=== PATIENT | female | born 1985 | race Caucasian/White ===

== ENCOUNTER 2017-03-11 22:19 | Emergency (ER) | payer OTHER ==
--- NOTE | 2017-03-11 22:23 | PDOC ---
History of Present Illness - General Chief Complaint: ,Possible Stated Complaint: /SPOTTING Time Seen by Provider: 03/11/17 22:21 - History of Present Illness Initial Comments: 03/11/17 22:44 This otherwise healthy 32-year-old woman , LMP 01/11/17, presents with history of progressive lower abdominal cramping pain and vaginal spotting. Patient has recently moved from [place] to this area and does not yet have an casualty claim adjuster here. When she was still in [place] 2 weeks ago, she had evaluation ultrasound that reportedly showed approximate 6 weeks gestation. A few days ago , her [place] casualty claim adjuster called the patient to tell her that her hormonal levels indicated that she was "further along" than 6 weeks. Also, prescription for antibiotic(patient does know identity of antibiotic) was transmitted to a local pharmacy by her [place] casualty claim adjuster for apparent UTI. Patient has 1 8-year-old child; no difficulty with that or delivery. No other pregnancies noted. Patient has no past medical history except for appendectomy. On no medications and has no known ALLERGIES. Past History - Past Medical History Allergies/Adverse Reactions: Allergies Allergy/AdvReac Type Severity Reaction Status Date / Time No Known Allergies Allergy Unverified 03/11/17 22:24 Home Medications: Ambulatory Orders NK [No Known Home Medication] 03/11/17 Review of Systems - Review of Systems Able to Perform ROS?: Yes Comments:: 12 point review of systems is negative except for what is noted in the history of present illness *Physical Exam - Physical Exam Comments: GENERAL: Adult female, alert and oriented 3, in no acute distress HEAD: Normal with no signs of trauma. EYES: PERRLA, EOMI, sclera anicteric, conjunctiva clear. ENT: Ears normal, nares patent, oropharynx clear without exudates. Dry mucous membranes. NECK: Normal range of motion, supple without lymphadenopathy, JVD, or masses. LUNGS: Breath sounds equal, clear to auscultation bilaterally. No wheezes, and no crackles. HEART:Regular rate and rhythm, normal S1 and S2 without murmur, rub or gallop. ABDOMEN:.normal bowel sounds No guarding or rebound.No masses No distention. Mild suprapubic tenderness EXTREMITIES: Normal range of motion, no edema. No clubbing or cyanosis. No erythema, or tenderness. NEUROLOGICAL: Cranial nerves II through XII grossly intact. Normal speech. No focal neurological deficits. MUSCULOSKELETAL: Back non-tender to palpation, no CVA tenderness SKIN: Warm, Dry, normal turgor, no rashes or lesions noted. Progress Note - Progress Note Progress Note: Pelvic ultrasound reveals no evidence of gestational sac or material; hemorrhagic debris present in uterine fundus. No evidence of ovarian torsion or other acute process Results discussed with the patient. Since the patient does not yet have an optical glass etcher in the area, referral for [facility] at [address] [place] [address] will be given to her for follow-up within the next 2 days. She should call the office tomorrow. Meanwhile, she has severe pain/fever/persistent severe vaginal bleeding, she should return to the emergency room. She should fill the antibiotic prescription that her casualty claim adjuster had sent to her pharmacy and begin course as written. Urine culture and sensitivity has been sent. *DC/Admit/Observation/Transfer Diagnosis at time of Disposition: Miscarriage - Discharge Dispostion Disposition: HOME Condition at time of disposition: Stable - Referrals Referrals: Eva Betts MD [Staff Physician] - - Patient Instructions Printed Discharge Instructions: Miscarriage Additional Instructions: call for followup tomorrow :[facility] [address] [place] [address] take antibiotic as prescribed by your casualty claim adjuster in [place] ibuprofen/naproxen/acetaminophen as needed for pain return to ER if you have severe pain,fever or bleeding - Post Discharge Activity
[2017-03-11 22:24] VITALS: BP 96/50; PULSE 74; TEMP 98.6; BMI 23.0
[2017-03-11 22:52] LABS: URINE APPEARANCE Clear; URINE BILIRUBIN Negative (NEGATIVE); URINE GLUCOSE (UA) Negative (NEGATIVE); URINE KETONE Negative (NEGATIVE); URINE NITRITE Negative (NEGATIVE); URINE PROTEIN Negative (NEGATIVE); URINE UROBILINOGEN 0.2 (0.2-1.0)
[2017-03-11 22:55] LABS: HCG,QUALITATIVE URINE POSITIVE
[2017-03-11 22:56] LABS: URINE BLOOD 1+ (NEGATIVE)
[2017-03-11 22:57] LABS: URINE COLOR STRAW; URINE LEUK ESTERASE TRACE (NEGATIVE)
[2017-03-11 23:06] LABS: EPI CELLS 2+ /HPF; URINE BACTERIA 1+ /hpf (NEGATIVE)
--- NOTE | 2017-03-12 09:05 | PDOC ---
Patient Follow-up (Call Back) - Post ED Follow - Up Chief Complaint: Revisit,Radiology Variance Condition at time of discharge: Stable Disposition at time of original discharge: HOME Reason for Call Back: Radiology Signs/Symptoms Improved: Yes - Disposition Rx Needed: No Additional Instructions/Notes: 03/12/2017 09:03am Attempted to reach patient on her cell (the only number provided) - but no answer. ector young voicemail for call back was notified by radiology that her US showed a thickened endometrium, it appears that she has had care and US prior to coming here - and unclear whether she had an IUP ddx includes retained products vs molar . will atttempt to call back later today. 03/12/2017 11:39am was able to speak to Ms Moseley - had US on Feb 23, and had blood work they had seen a gestational sac, without a heart beat. was told her by dates she was supposed be at 6 weeks. was told that her beta was higher than expected for her ultrasound findings. pt is currently feeling alittle better, some minmal cramping and spotting she will try to call the urogynecology physician that was referred and if unable to secure appointment in the next day or two, will return to the emergenecy department. i also disucssed that if her pain or bleeding got worse, or had any sypmtoms of anemia (that i described to her), she should come back to the ED.
== END 2017-03-12 01:08 | disposition home or self-care (01) ==
LOC: FER 22:19
DX: O03.9 Complete or unspecified spontaneous abortion without complication (principal)
CPT/HCPCS: 76801-TC; 81003; 81015; 84703; 87086; 99283-25

== ENCOUNTER 2017-03-14 18:25 | Emergency (ER) | payer OTHER ==
[2017-03-14 19:00] VITALS: BP 130/79; PULSE 68; TEMP 98.9; BMI 23.0
--- NOTE | 2017-03-14 19:29 | PDOC ---
History of Present Illness - General Chief Complaint: Vaginal Bleeding Stated Complaint: ER REVIST Time Seen by Provider: 03/14/17 19:27 History Source: Patient Exam Limitations: No Limitations - History of Present Illness Initial Comments: 03/14/17 21:33 Best Contact: 02/23/2017: [facility] DIRECTOR COLLEGE: First ultrasound: Positive gestational sac, no pole, no heartbeat/possibly early gestation Patient was seen by her bisque kiln placer prior to relocating to [place]. 03/09/2017: Light vaginal bleed without any other complaints 03/10/2017: Intermittent light vaginal bleed without any other complaints 03/11/2017: Moderate to heavy brownish vaginal discharge and [place] [facility] [place] and was informed of a spontaneous missed AB. Patient was advised to follow-up with DIRECTOR COLLEGE within 48 hours. If Patient is unable to follow with her bisque kiln placer within 48 hours, she is return to the emergency department for an ultrasound and blood work Patient presents to the emergency department requesting for an ultrasound and blood work. Patient denies headache, dizziness, lightheadedness, neck/back pains , chest pain, shortness of breath, flank pains, urinary symptoms, abdominal discomfort, vaginal bleed/discharge. Patient states she was given Macrobid 100 mg twice a day 3 days ago when she was diagnosed with a UTI. Patient states she picked up the medication today but has not taken it yet. Past History - Past Medical History Allergies/Adverse Reactions: Allergies Allergy/AdvReac Type Severity Reaction Status Date / Time No Known Allergies Allergy Verified 03/14/17 18:54 Home Medications: Ambulatory Orders NK [No Known Home Medication] 03/11/17 COPD: No - Surgical History Appendectomy: Yes - Immunization History Immunization Up to Date: Yes - Suicide/Smoking/Psychosocial Hx Smoking History: Unknown if ever smoked Have you smoked in the past 12 months: No Number of Cigarettes Smoked Daily: 0 Information on smoking cessation initiated: No Hx Alcohol Use: No Drug/Substance Use Hx: No Substance Use Type: None Review of Systems - Review of Systems Able to Perform ROS?: Yes Comments:: 03/14/17 21:37 CONSTITUTIONAL: Absent: fever, chills, diaphoresis, generalized weakness, malaise, loss of appetite HEENT: Absent: rhinorrhea, nasal congestion, throat pain, throat swelling, difficulty swallowing, mouth swelling, ear pain, eye pain, visual Changes CARDIOVASCULAR: Absent: chest pain, loss of consciousness, palpitations, irregular heart rate, peripheral edema RESPIRATORY: Absent: cough, shortness of breath, dyspnea with exertion, orthopnea, wheezing, stridor, hemoptysis GASTROINTESTINAL: Absent: abdominal pain, abdominal distension, nausea, vomiting, diarrhea, constipation, melena, hematochezia GENITOURINARY: Absent: dysuria, frequency, urgency, hesitancy, hematuria, flank pain, genital pain MUSCULOSKELETAL: Absent: myalgia, arthralgia, joint swelling SKIN: Absent: rash, itching, pallor HEMATOLOGIC/IMMUNOLOGIC: Absent: easy bleeding, easy bruising, lymphadenopathy, frequent infections ENDOCRINE: Absent: unexplained weight gain, unexplained weight loss, heat intolerance, cold intolerance Is the patient limited Indonesian proficient: No *Physical Exam - Vital Signs Last Vital Signs Temp Pulse Resp BP Pulse Ox 98.9 F 68 17 130/79 99 03/14/17 18:54 03/14/17 18:54 03/14/17 18:54 03/14/17 18:54 03/14/17 18:54 - Physical Exam Comments: 03/14/17 21:38 GENERAL: Well developed, well nourished. Awake and alert. No acute distress. HEENT: Normocephalic, atraumatic. PERRLA, EOMI. No conjunctival pallor. Sclera are non- icteric. Moist mucous membranes. Oropharynx is clear. NECK: Supple. Full ROM. No JVD. Carotid pulses 2+ and symmetric, without bruits. No thyromegaly. No lymphadenopathy. CARDIOVASCULAR: Regular rate and rhythm. No murmurs, rubs, or gallops. Distal pulses are 2+ and symmetric. PULMONARY: No evidence of respiratory distress. Lungs clear to auscultation bilaterally. No wheezing, rales or rhonchi. ABDOMINAL: Soft. Non-tender. Non-distended. No rebound or guarding. No organomegaly. Normoactive bowel sounds. Warm and dry. Normal capillary refill. No rashes. No jaundice. Pelvic: External genitalia normal without lesions. Vaginal vault +slight blood Os closed Cervix is long and closed. No cervical motion tenderness. Uterus is nontender and normal in size. Adnexa are nontender and without masses. ED Treatment Course - LABORATORY CBC & Chemistry Diagram: 03/14/17 20:30 03/14/17 20:30 - RADIOLOGY Radiograph Interpretation: 03/14/17 21:38 Transvaginal US: Miscarriage and potential retained products of conception *DC/Admit/Observation/Transfer Diagnosis at time of Disposition: Miscarriage, Retained products of conception after miscarriage UTI (urinary tract infection) Qualifiers: Urinary tract infection type: acute cystitis Hematuria presence: without hematuria Qualified Code(s): N30.00 - Acute cystitis without hematuria - Discharge Dispostion Condition at time of disposition: Stable Admit: No - Referrals Referrals: Rubio Seay MD [Staff Physician] - Eva Betts MD [Staff Physician] - - Patient Instructions Printed Discharge Instructions: DI for Miscarriage, DI for Urinary Tract Infection (UTI) Additional Instructions: Increase fluids Take your macrobid as prescribed by your physician Return to the ER for severe/persistent/worsening symptoms As per Dr. Betts [phone] SUPERVISOR BILLPOSTING, you were given medication name Cytotec 800 mg in the emergency department. Distal induced vaginal bleeding. If the bleeding is in control or more than 2 hours, please return back to the emergency department As per Dr. Betts/you are to go to the clinic at [address] [place] [address] for an evaluation Also return back to the emergency department for any concerns, persistent/ severe or worsening symptoms Otherwise, you have to follow-up with the manager talent by tomorrow/Thursday. Your hormone level today is 377058.4 - Post Discharge Activity Forms/Work/School Notes: Back to Work Progress Note - Progress Note Progress Note: Spoke to Dr Worthington/Dr. Betts rn interventional [phone] -As per Dr. Betts cytotec 800mcg. Will have vag bleed Follow up with OB at clinic on Thursday03/16/2017
[2017-03-14 20:38] LABS: BASO % 0.4 % (0-2.0); EOS % 0.9 % (0-4.5); HEMATOCRIT 37.5 % (32.4-45.2); HEMOGLOBIN 12.5 GM/dL (10.7-15.3); LYMPH % 23.6 % (8-40); MCH 29.7 pg (25.7-33.7); MCHC 33.2 g/dl (32.0-36.0); MEAN CELL VOLUME 89.5 fl (80-96); MEAN PLT VOLUME 7.5 fl (7.5-11.1); MONO % 8.8 % (3.8-10.2); NEUT % 66.3 % (42.8-82.8); PLATELET COUNT 317 K/MM3 (134-434); RBC 4.19 M/mm3 (3.60-5.2); RDW 12.7 % (11.6-15.6); WHITE BLOOD COUNT 12.1 K/mm3 (4.0-10.0)
[2017-03-14 21:04] LABS: ALBUMIN 3.8 g/dl (3.4-5.0); ANION GAP 7 (8-16); BILIRUBIN,TOTAL 0.3 mg/dL (0.2-1.0); BLOOD UREA NITROGEN 12 mg/dL (7-18); CALCIUM 8.5 mg/dL (8.5-10.1); CHLORIDE 103 mmol/L (98-107); CO2 25 mmol/L (21-32); CREATININE 0.6 mg/dL (0.55-1.02); GLUCOSE,RANDOM 82 mg/dL (74-106); POTASSIUM 4.1 mmol/L (3.5-5.1); SGOT/AST 17 U/L (15-37); SGPT/ALT 27 U/L (12-78); SODIUM 135 mmol/L (136-145); TOT PROT 7.1 g/dl (6.4-8.2)
[2017-03-14 21:19] LABS: ALK PHOS 53 U/L (45-117)
[2017-03-14 21:27] LABS: URINE APPEARANCE SLCLOUDY; URINE BILIRUBIN NEGATIVE (NEGATIVE); URINE BLOOD 3+ (NEGATIVE); URINE COLOR YELLOW; URINE GLUCOSE (UA) NEGATIVE (NEGATIVE); URINE KETONE NEGATIVE (NEGATIVE); URINE NITRITE NEGATIVE (NEGATIVE); URINE PROTEIN NEGATIVE (NEGATIVE); URINE UROBILINOGEN NEGATIVE mg/dL (0.2-1.0)
[2017-03-14 21:55] LABS: URINE LEUK ESTERASE 1+ (NEGATIVE)
[2017-03-14 21:56] LABS: EPI CELLS FEW /HPF (FEW); URINE HYALINE CAST 1 /lpf; URINE MUCUS RARE
[2017-03-14] MEDS ORDERED: RHO(D) IMMUNE GLOBULIN 1,500 UNIT DISP.SYRIN IM ONE (23:21)
[2017-03-15] MEDS ORDERED: MISOPROSTOL 200 MCG TABLET PO ONE (00:30)
[2017-03-15] MEDS ORDERED: MISOPROSTOL 200 MCG TABLET PO SCH (08:00)
== END 2017-03-15 00:55 | disposition home or self-care (01) ==
LOC: JER 18:25
DX: O03.4 Incomplete spontaneous abortion without complication (principal)
CPT/HCPCS: 36415; 76817-TC; 80053; 81003; 81015; 84702; 85025; 87086; 99281-25

== ENCOUNTER 2017-08-25 18:31 | Emergency (ER) | payer SELFPAY ==
[2017-08-25 18:36] VITALS: BP 143/81; PULSE 60; TEMP 98.7; BMI 21.5
--- NOTE | 2017-08-25 20:44 | PDOC ---
History of Present Illness - General Chief Complaint: Pain Stated Complaint: abd PAIN Time Seen by Provider: 08/25/17 20:44 - History of Present Illness Initial Comments: 08/25/17 21:52 Ms. Moseley is a 32 yo female w/ pmh of single miscarriage who presents for evaluation of 2 week history of nausea and vomiting. She reports this episode was initially proceeded by diarrhea only but that it has progressed over the last 2 weeks. She comes in because of the time length and also because she has not been able to keep food down. She also endorses occasional chills. The patient denies chest pain, shortness of breath, headache and dizziness. Denies fever and constipation. Denies dysuria, frequency, urgency and hematuria. Allergies: NKDA Past History - Past Medical History Allergies/Adverse Reactions: Allergies Allergy/AdvReac Type Severity Reaction Status Date / Time No Known Allergies Allergy Verified 08/25/17 18:32 Home Medications: Ambulatory Orders NK [No Known Home Medication] 03/11/17 COPD: No DVT: No - Surgical History Appendectomy: Yes - Immunization History Immunization Up to Date: Yes - Suicide/Smoking/Psychosocial Hx Smoking History: Unknown if ever smoked Have you smoked in the past 12 months: No Number of Cigarettes Smoked Daily: 0 Information on smoking cessation initiated: No Hx Alcohol Use: No Drug/Substance Use Hx: No Substance Use Type: None Review of Systems - Review of Systems Comments:: 08/25/17 22:00 GENERAL/CONSTITUTIONAL: +Subjective chills. No weakness. HEAD, EYES, EARS, NOSE AND THROAT: No change in vision. No ear pain or discharge. No sore throat. CARDIOVASCULAR: No chest pain or shortness of breath RESPIRATORY: No cough, wheezing, or hemoptysis. GASTROINTESTINAL: +N/V/D as described. GENITOURINARY: No dysuria, frequency, or change in urination. MUSCULOSKELETAL: No joint or muscle swelling or pain. No neck or back pain. SKIN: No rash NEUROLOGIC: No headache, vertigo, loss of consciousness, or change in strength/ sensation. ENDOCRINE: No increased thirst. No abnormal weight change HEMATOLOGIC/LYMPHATIC: No anemia, easy bleeding, or history of blood clots. ALLERGIC/IMMUNOLOGIC: No hives or skin allergy. *Physical Exam - Vital Signs Last Vital Signs Temp Pulse Resp BP Pulse Ox 98.7 F 60 18 143/81 100 08/25/17 18:33 08/25/17 18:33 08/25/17 18:33 08/25/17 18:33 08/25/17 18:33 - Physical Exam Comments: 08/25/17 22:00 GENERAL: Awake, alert, and fully oriented, in no acute distress HEAD: No signs of trauma, normocephalic, atraumatic EYES: PERRLA, EOMI, sclera anicteric, conjunctiva clear ENT: Auricles normal inspection, hearing grossly normal, nares patent, oropharynx clear without exudates. Moist mucosa NECK: Normal ROM, supple, no lymphadenopathy, JVD, or masses LUNGS: No distress, speaks full sentences, clear to auscultation bilaterally HEART: Regular rate and rhythm, normal S1 and S2, no murmurs, rubs or gallops, peripheral pulses normal and equal bilaterally. ABDOMEN: +RUQ pain. Soft, normoactive bowel sounds. No guarding, no rebound. No masses EXTREMITIES: Normal inspection, Normal range of motion, no edema. No clubbing or cyanosis. NEUROLOGICAL: Cranial nerves II through XII grossly intact. Normal speech, normal gait, no focal sensorimotor deficits SKIN: Warm, Dry, normal turgor, no rashes or lesions noted. ED Treatment Course - LABORATORY CBC & Chemistry Diagram: 08/25/17 21:03 08/25/17 21:03 Medical Decision Making - Medical Decision Making 08/25/17 22:00 Ms. Moseley is a 32 yo female w/ pmh as described who presents for evaluation of N/V/D and RUQ pain for 2 weeks. Zofran and 1L NS sent for symptomatic relief. Labs sent as below significant for positive HCG and UTI on UA. Patient informed she is likely . Beta HCG and Transvaginal US sent for for evaluation and confirmation of IUP. Patient signed out to Dr. Green for further evaluation. *DC/Admit/Observation/Transfer Diagnosis at time of Disposition: Qualifiers: Weeks of gestation: unspecified Qualified Code(s): Z34.90 - Encounter for supervision of normal , unspecified, unspecified trimester UTI (urinary tract infection) Qualifiers: Urinary tract infection type: site unspecified Hematuria presence: without hematuria Qualified Code(s): N39.0 - Urinary tract infection, site not specified - Referrals - Patient Instructions - Post Discharge Activity
[2017-08-25] MEDS ORDERED: ONDANSETRON 4 MG/2 ML VIAL IVPUSH ONE (20:53)
[2017-08-25] MEDS ORDERED: SODIUM CHLORIDE 1,000 ML IV STA (20:53)
--- NOTE | 2017-08-25 21:04 | PDOC ---
Attending Attestation - HPI HPI: 08/25/17 21:48 Patient is a 2 year old female with no significant past medical history who presents to the ED with complaints of Right upper quadrant abdominal pain that began 2 weeks ago. Patient reports experiencing intense RUQ pain as well as associated nausea and multiple episodes of vomiting, prompting her to come into the ED for further evaluation. Denies chest pain, Sob. Denies fevers,chills. Denies nausea, vomiting. Denies contact with sick individuals, out of state travelling. Denies dysuria, hematuria. Denies constipation, diarrhea. Denies head trauma, loss of consciousness, Vision changes. Denies trauma to affected area. Denies any other symptoms. Allergies: None Social history: No smoking. No alcohol. No illicit drugs. Surgical history: Appendectomy PMD: None <Isrrael Villegas - Last Filed: 08/25/17 21:48> - Resident Resident Name: KalpeshvaleriaYash self - ED Attending Attestation I have performed the following: I have examined & evaluated the patient, The case was reviewed & discussed with the resident, I agree w/resident's findings & plan, Exceptions are as noted - Physicial Exam PE: 08/25/17 23:02 Physical Exam General Appearance: Yes: Appropriately Dressed. No: Apparent Distress, Intoxicated HEENT: positive: EOMI, VESNA, Normal ENT Inspection, Normal Voice, TMs Normal, Pharynx Normal. negative: Pale Conjunctivae, Photophobia, Scleral Icterus (R), Scleral Icterus (L) Neck: positive: Trachea midline, Normal Thyroid, Supple. negative: Tender, Rigid, Carotid bruit, Stridor, Lymphadenopathy (R), Lymphadenopathy (L), Thyromegaly Respiratory/Chest: positive: Lungs Clear, Normal Breath Sounds. negative: Chest Tender, Respiratory Distress, Accessory Muscle Use, Labored Respiration, RES, Crackles, Rales, Rhonchi, Stridor, Wheezing, Dullness Cardiovascular: positive: Regular Rhythm, Regular Rate, S1, S2. negative: Edema , JVD, Murmur, Bradycardia, Tachycardia Vascular Pulses: Dorsalis-Pedis (R): 2+, Doralis-Pedis (L): 2+ Gastrointestinal/Abdominal: positive: Normal Bowel Sounds, Flat, Soft. negative : Tender, Organomegaly, Pulsatile Mass, Increased Bowel Sounds, Decreased BS, Distended, Guarding, Rebound, Hernia, Hepatomegaly, Spleenomegaly Lymphatic: negative: Adenopathy, Tenderness Musculoskeletal: positive: Normal Inspection. negative: CVA Tenderness, Decreased Range of Motion Extremity: positive: Normal Capillary Refill, Normal Inspection, Normal Range of Motion, Pelvis Stable. negative: Tender, Pedal Edema, Swelling, Erythema Integumentary: positive: Normal Color, Dry, Warm. negative: Cyanotic, Erythema , Jaundice, Rash Neurologic: positive: buildings and grounds coordinator II-XII NML intact, Fully Oriented, Alert, Normal Mood/ Affect, Motor Strength 5/5. negative: EOM Palsy, Facial Droop, Sensory Deficit - Medical Decision Making 08/25/17 23:03 Pt treated and released. <Grant Ceballos - Last Filed: 08/25/17 23:08> Discharge Disposition <BakariDestinyIsrrael - Last Filed: 08/25/17 21:48> - Discharge Dispostion Decision to Admit order: No <Grant Ceballos - Last Filed: 08/25/17 23:08> - Diagnosis Qualifiers: Weeks of gestation: unspecified Qualified Code(s): Z34.90 - Encounter for supervision of normal , unspecified, unspecified trimester UTI (urinary tract infection) Qualifiers: Urinary tract infection type: site unspecified Hematuria presence: without hematuria Qualified Code(s): N39.0 - Urinary tract infection, site not specified - Discharge Dispostion Disposition: HOME Condition at time of disposition: Stable - Prescriptions Prescriptions: Cephalexin [Keflex] 500 mg PO BID #14 capsule Ondansetron [Zofran *Odt*] 4 mg SL TID #30 od.tablet - Referrals Referrals: Sanford Cunningham MD [Staff Physician] - - Patient Instructions Printed Discharge Instructions: Medications and , DI for Urinary Tract Infection (UTI) Additional Instructions: Please follow up with your security installation sales technician for follow up for the . drink plenty of fluids. Return if any problems
[2017-08-25] MEDS ORDERED: ONDANSETRON 4 MG/2 ML VIAL ONE (21:06)
[2017-08-25 21:12] LABS: BASO % 0.2 % (0-2.0); EOS % 0.2 % (0-4.5); HEMATOCRIT 42.9 % (32.4-45.2); HEMOGLOBIN 14.3 GM/dL (10.7-15.3); LYMPH % 11.9 % (8-40); MCH 29.5 pg (25.7-33.7); MCHC 33.4 g/dl (32.0-36.0); MEAN CELL VOLUME 88.4 fl (80-96); MONO % 5.9 % (3.8-10.2); NEUT % 81.8 % (42.8-82.8); PLATELET COUNT 366 K/MM3 (134-434); RBC 4.85 M/mm3 (3.60-5.2); RDW 13.3 % (11.6-15.6); WHITE BLOOD COUNT 13.7 K/mm3 (4.0-10.0)
[2017-08-25 21:19] LABS: URINE APPEARANCE SLCLOUDY; URINE BILIRUBIN NEGATIVE (<2.0 mg/dL); URINE COLOR DKYELLOW; URINE GLUCOSE (UA) NEGATIVE (NEGATIVE); URINE KETONE 2+ (NEGATIVE); URINE NITRITE NEGATIVE (NEGATIVE); URINE PROTEIN NEGATIVE (NEGATIVE); URINE UROBILINOGEN NEGATIVE mg/dL (0.2-1.0)
[2017-08-25 21:23] LABS: URINE LEUK ESTERASE 2+ (NEGATIVE)
[2017-08-25 21:24] LABS: EPI CELLS RARE /HPF (FEW); URINE BACTERIA MODERATE /hpf (NONE SEEN); URINE MUCUS MANY
[2017-08-25 21:26] LABS: HCG,QUALITATIVE URINE POSITIVE
[2017-08-25 21:37] LABS: ALBUMIN 3.8 g/dl (3.4-5.0); ANION GAP 10 (8-16); BILIRUBIN,TOTAL 0.5 mg/dL (0.2-1.0); BLOOD UREA NITROGEN 11 mg/dL (7-18); CALCIUM 8.9 mg/dL (8.5-10.1); CHLORIDE 105 mmol/L (98-107); CO2 23 mmol/L (21-32); CREATININE 0.6 mg/dL (0.55-1.02); GLUCOSE,RANDOM 73 mg/dL (74-106); LIPASE 148 U/L (73-393); SGPT/ALT 41 U/L (12-78); SODIUM 138 mmol/L (136-145)
[2017-08-25 21:38] LABS: ALK PHOS 63 U/L (45-117)
[2017-08-25 21:40] LABS: POTASSIUM 4.1 mmol/L (3.5-5.1); SGOT/AST 26 U/L (15-37)
[2017-08-25] MEDS ORDERED: CEPHALEXIN MONOHYDRATE 500 MG CAPSULE (UD) PO ONE (23:03)
[2017-08-25] MEDS ORDERED: CEPHALEXIN MONOHYDRATE 500 MG CAPSULE (UD) ONE (23:13)
== END 2017-08-26 01:30 | disposition home or self-care (01) ==
LOC: JER 18:31
PROC: 3E033GC Introduction of Other Therapeutic Substance into Peripheral Vein, Percutaneous Approach (ICD-10-PCS; principal; 2017-08-25)
DX: O26.891 Other specified pregnancy related conditions, first trimester (principal); O23.31 Infections of other parts of urinary tract in pregnancy, first trimester; O34.82 Maternal care for other abnormalities of pelvic organs, second trimester; N83.291 Other ovarian cyst, right side; Z3A.08 8 weeks gestation of pregnancy
CPT/HCPCS: 36415; 76705-TC; 76817-TC; 80053; 81003; 81015; 83690; 84702; 84703; 85025; 99281-25; J7030